=== PATIENT | male | born 1985 | race Caucasian/White ===

== ENCOUNTER 2019-12-05 23:55 | Emergency (ER) | payer OTHER ==
[~2019-12-05] VITALS: Ht 175.3 cm; Wt 93.2 kg
[2019-12-06 00:13] VITALS: TEMP 98.2
[2019-12-06] MEDS ORDERED: BENADRYL50 MG PO (01:13)
[2019-12-06] MEDS ORDERED: TYLENOL 500MG500 MG PO (01:14)
[2019-12-06] MEDS ORDERED: ANTIVERT 25MG25 MG PO (01:32)
[2019-12-06 02:10] VITALS: BP 122/82; PULSE 60
== END 2019-12-06 02:10 | disposition home or self-care (01) ==
LOC: COL.ER 23:55
DX: R42 Dizziness and giddiness (principal); Z90.89 Acquired absence of other organs